=== PATIENT | male | born 1975 | race Caucasian/White ===

== ENCOUNTER 2016-10-14 15:30 | Emergency (ER) | payer MEDICARE, SELFPAY | END 2016-10-14 21:50 | disposition left against medical advice (07) | LOC: ER1 15:30 | DX: Z53.21 Procedure and treatment not carried out due to patient leaving prior to being seen by health care provider (principal) ==

== ENCOUNTER 2016-10-15 10:40 | Inpatient (IN) | payer MEDICARE, OTHER ==
[~2016-10-15] VITALS: Ht 182.9 cm; Wt 109.1 kg
[2016-10-15 12:22] LABS: HEMOGLOBIN 16.8 gm/dl (14.0-17.5); RED BLOOD COUNT 5.44 M/UL (4.20-5.50); WHITE BLOOD COUNT 5.4 K/UL (4.5-11.0)
[2016-10-15 12:42] LABS: BUN/CREATININE RATIO 14 (0-10)
[2016-10-16] MEDS ORDERED: COUMADIN5 MG PO (01:39)
[2016-10-16] MEDS ORDERED: COLCRYS0.6 MG PO (01:40)
[2016-10-16] MEDS ORDERED: OMEPRAZOLE40 MG PO (01:40)
[2016-10-16] MEDS ORDERED: NEURONTIN 100100 MG PO (01:41)
[2016-10-16 03:47] LABS: WHITE BLOOD COUNT 5.4 K/UL (4.5-11.0)
[2016-10-16 03:48] LABS: HEMOGLOBIN 14.6 gm/dl (14.0-17.5); RED BLOOD COUNT 4.72 M/UL (4.20-5.50)
[2016-10-16 03:59] LABS: BUN/CREATININE RATIO 12 (0-10)
[2016-10-17 05:01] LABS: HEMOGLOBIN 15.2 gm/dl (14.0-17.5); RED BLOOD COUNT 4.96 M/UL (4.20-5.50); WHITE BLOOD COUNT 8.2 K/UL (4.5-11.0)
[2016-10-17 05:33] LABS: BUN/CREATININE RATIO 11 (0-10)
[2016-10-18 01:03] LABS: HEMOGLOBIN 15.3 gm/dl (14.0-17.5); RED BLOOD COUNT 4.97 M/UL (4.20-5.50)
[2016-10-18 01:05] LABS: WHITE BLOOD COUNT 10.3 K/UL (4.5-11.0)
[2016-10-18] MEDS ORDERED: LOVENOX SY120 MG/0.8 SQ (19:03)
[2016-10-18] MEDS ORDERED: LORCET PLUS 7.1 EACH PO (19:06)
== END 2016-10-18 19:30 | disposition home or self-care (01) | DRG 342 ==
LOC: ER1 10:40 → PROG CARE 15:51 → ZEROF 15:51 → PROG CARE 10-16 01:20
PROVIDERS: Emergency Medicine; Internal Medicine; Surgery; ADMIT Internal Medicine
PROC: 0DTJ4ZZ Resection of Appendix, Percutaneous Endoscopic Approach (ICD-10-PCS; principal; 2016-10-16 13:00)
DX: K35.80 Unspecified acute appendicitis (principal); D68.51 Activated protein C resistance; Z86.718 Personal history of other venous thrombosis and embolism; Z95.828 Presence of other vascular implants and grafts; N20.0 Calculus of kidney; N28.9 Disorder of kidney and ureter, unspecified; M54.9 Dorsalgia, unspecified; G89.29 Other chronic pain; Z90.49 Acquired absence of other specified parts of digestive tract; Z79.01 Long term (current) use of anticoagulants; Z82.3 Family history of stroke
CPT/HCPCS: 36415; 80048; 80053; 81001; 83605; 83690; 83735; 85025; 85027; 85610; 85730; 86900; 86901; 86927; 96361; 96372; 96374; 96375; 99285; J1100; J1335; J1644; J1650; J2250; J2270; J2405; J2550; J2710; J3010; J3430; J7030; J7050; J7120; P9017

== ENCOUNTER → 2016-10-18 | Outpatient (CLI) | payer MEDICARE, OTHER ==
[~2016-10-18] MED LIST: COLCRYS0.6 MG PO; COUMADIN5 MG PO; LORCET PLUS 7.1 EACH PO; LOVENOX SY120 MG/0.8 SQ; NEURONTIN 100100 MG PO; OMEPRAZOLE40 MG PO
== END ==
LOC: EROP 21:55
DX: Z76.0 Encounter for issue of repeat prescription (principal)
CPT/HCPCS: 96372; J1650